=== PATIENT | female | born 1980 | race Caucasian/White ===

== ENCOUNTER 2023-08-17 08:09 | Outpatient (CLI) | payer BC, SELFPAY ==
--- NOTE | ~2023-08-17 | CT_ITS ---
Non-contrast CT scan of the Abdomen and Pelvis Clinical indication: Abdominal pain Technique: 2.5 mm axial scans were obtained through the abdomen and pelvis without intravenous or or al contrast. Dose reduction technique was used on this scan by utilizing automated exposure control a nd iterative reconstruction technique. The dose-length product (DLP) was 1074.91 mGy-cm. Findings: Images through the lung bases reveal no abnormalities. Small nonobstructing left renal stones measuring up to 5 mm in maximum diameter. No right renal stone . No ureteral stone or hydronephrosis on either side. The liver, spleen, pancreas, and adrenals appear normal. Cholecystectomy clips are present. There is no aortic aneurysm. There is no evidence of bowel obstruction. Images through the pelvis were performed. There is no evidence of ascites or lymphadenopathy. Urinary bladder unremarkable. Probable small left adnexal cyst. No ascites. Impression: Nonobstructing left renal stones, as above. No ureteral stone or hydronephrosis on either side. Probable small left adnexal cyst. Reviewed, dictated and finalized at [facility]. Impression: Nonobstructing left renal stones, as above. No ureteral stone or hydronephrosis on either side. Probable small left adnexal cyst.
== END 2023-08-17 08:10 ==
LOC: MICIMG 08:11
PROVIDERS: PCP Family Medicine; Visit Provider Family Medicine
DX: R10.9 Unspecified abdominal pain (principal)
CPT/HCPCS: 74176